=== PATIENT | female | born 1955 | race Caucasian/White ===

== ENCOUNTER 2025-05-12 18:11 | Emergency (ER) | payer MEDICARE, BC ==
[2025-05-12 18:54] LABS: BASOPHILS ABSOLUTE AUTO 0.04 K/uL (0.00-0.10); BASOPHILS PERCENT AUTO 0.6 % (0.1-1.3); EOSINOPHILS ABSOLUTE AUTO 0.37 K/uL (0.00-0.40); EOSINOPHILS PERCENT AUTO 5.5 % (0.0-5.4); IMMATURE GRAN ABSOLUTE AUTO 0.01 K/uL (0.00-0.23); IMMATURE GRAN PERCENT AUTO 0.1 % (0.0-0.7); LYMPHOCYTES ABSOLUTE AUTO 2.17 K/uL (0.8-3.3); LYMPHOCYTES PERCENT AUTO 32.0 % (11.4-47.7); MONOCYTES ABSOLUTE AUTO 0.62 K/uL (0.20-0.90); MONOCYTES PERCENT AUTO 9.1 % (3.3-12.6); NEUTROPHILS ABSOLUTE AUTO 3.57 K/uL (1.0-7.6); NEUTROPHILS PERCENT AUTO 52.7 % (40.0-78.1); PLATELET COUNT,PLT 177 K/uL (130-375); RED BLOOD CELL COUNT 4.43 M/uL (3.77-5.24); WHITE BLOOD CELL COUNT,WBC 6.8 K/uL (3.2-11.0)
[2025-05-12 19:22] LABS: BLOOD UREA NITROGEN,BUN 17.0 mg/dL (7-18); CARBON DIOXIDE,CO2 27.0 mmol/L (21-32); CHLORIDE,CL 97.0 mmol/L (100-108); CREATININE 1.1 mg/dL (0.6-1.0); EST CRCL DRUG DOSING (CG) 45.19 mL/min; ESTIMATED GFR 54.0 mL/min (>60); GLUCOSE RANDOM 102.0 mg/dL (74-106); POTASSIUM,K 3.9 mmol/L (3.6-5.2); SODIUM,NA 134.0 mmol/L (140-148); TROPONIN I HIGH SENSITIVITY 9.7 pg/mL (<=60.3)
[2025-05-12] MEDS: Iopamidol 755 Mg/ML 100 ML Bottle IV SCH (21:07)
[2025-05-12] MEDS: Heparin Sodium 5,000 Units/ML Vial IVPUSH ONE (22:44)
== END 2025-05-12 23:38 ==
LOC: JP.ED 18:11
DX: I26.99 Other pulmonary embolism without acute cor pulmonale (principal); Z88.0 Allergy status to penicillin
CPT/HCPCS: 36415; 71045; 71275; 80048; 84484; 85025; 85379; 85730; 93005; 96365; 96375; 99285; J1644; J7030; Q9967